=== PATIENT | female | born 1955 ===

== ENCOUNTER 2016-11-28 12:59 | Emergency (ER) | payer OTHER ==
[2016-11-28] MEDS ORDERED: Lidocaine 2% VISCOUS* 15 ML UDC PO ONE (14:54)
--- NOTE | 2016-11-28 15:32 | RAD ---
INDICATION: Globus. COMPARISON: Comparison is made with a prior study from May 28, 2008. TECHNIQUE: AP and lateral images of the soft tissue of the neck were obtained. FINDINGS: The epiglottis and aryepiglottic folds appear to be within normal limits. No retropharyngeal soft tissue thickening is seen. There are calcifications which project over the retropharyngeal soft tissues at the C4 and C5 level likely related to the thyroid cartilage and unchanged from the prior exam. IMPRESSION: NO EVIDENCE FOR ACUTE FINDING.
[2016-11-28 16:45] VITALS: BP 171/80
--- NOTE | 2016-11-29 07:56 | ED ---
Talon Townsend Adam, scribed for Vaughn Duarte MD on 11/28/16 at 1554 . GI/ HPI - HPI Summary HPI Summary: 61 year old female arrived to ED c/o a bolus of food stuck in her throat since yesterday morning. Patient reports eating a bite of pancakes yesterday morning, and has since experienced feelings of discomfort in her throat, described as "feeling like something is stuck in there." She also reports GERD and feels a burning sensation in her throat. She denies any trouble breathing or talking, and has been able to keep food and water down since onset. She has never had a scope of her throat/esophagus. - History of Current Complaint Chief Complaint: EDGeneral Time Seen by Provider: 11/28/16 14:22 Stated Complaint: FEELS LIKE SOMETHING STUCK IN THROAT Hx Obtained From: Patient Onset/Duration: Started Days Ago Timing: Constant Severity: Moderate Current Severity: Moderate Pain Intensity: 3 Pain Characteristics: Burning Associated Signs and Symptoms: Positive: Other: - general discomfort in her throat Alleviating Factor(s): Spontaneous Resolution - Allergy/Home Medications Allergies/Adverse Reactions: Allergies Allergy/AdvReac Type Severity Reaction Status Date / Time Adhesive Tape Allergy Unknown Verified 03/18/16 13:25 Reaction Details Home Medications: Home Medications Metoprolol Succinate XL TAB* [Toprol XL TAB*] 25 mg PO DAILY 11/28/16 [History Confirmed 11/28/16] PMH/Surg Hx/FS Hx/Imm Hx - Cancer History Cancer Type, Location and Year: Breast Cancer Infectious Disease History: No Infectious Disease History: Denies: Traveled Outside the [place] in Last 30 Days - Family History Known Family History: Positive: Cardiac Disease, Diabetes - Social History Lives: With Family Alcohol Use: Daily Alcohol Amount: 2 beers/day Substance Use Type: Reports: None Smoking Status (MU): Never Smoked Tobacco Review of Systems All Other Systems Reviewed And Are Negative: Yes Physical Exam Vital Signs On Initial Exam: Initial Vitals Temp Pulse Resp BP Pulse Ox 98.0 F 59 20 171/81 100 11/28/16 13:06 11/28/16 13:06 11/28/16 13:06 11/28/16 13:06 11/28/16 13:06 - Kyra Coma Scale Coma Scale Total: 15 Diagnostics - Vital Signs Vital Signs Temp Pulse Resp BP Pulse Ox 11/28/16 14:04 98.2 F 60 20 176/80 98 11/28/16 13:06 98.0 F 59 20 171/81 100 - Laboratory Lab Statement: Any lab studies that have been ordered have been reviewed, and results considered in the medical decision making process. - Radiology Neck XRay Radiology Interpretation Completed By: Radiologist - IMPRESSION: NO EVIDENCE FOR ACUTE FINDING. GIGU Course/Dx - Diagnoses Provider Diagnoses: Esophageal foreign body sensation Discharge - Discharge Plan Condition: Stable Disposition: HOME Prescriptions: Omeprazole CAP* [Prilosec CAP* 20 MG] 20 mg PO DAILY #14 cap. Patient Education Materials: Esophageal Foreign Body (ED) Referrals: Miles Stevens MD [Medical Doctor] - Additional Instructions: Follow up with Dr. Stevens (Gastro). The documentation as recorded by the Talon hernandez Adam accurately reflects the service I personally performed and the decisions made by Felicia domingo Jerry, MD.
== END 2016-11-28 15:45 | disposition home or self-care (01) ==
LOC: ED 12:59
DX: R09.89 Other specified symptoms and signs involving the circulatory and respiratory systems (principal); K21.9 Gastro-esophageal reflux disease without esophagitis
CPT/HCPCS: 70360; 93005; 99282